=== PATIENT | male | born 2000 | race Hispanic/Latino ===

== ENCOUNTER 2022-06-01 11:09 | Emergency (ER) | payer SELFPAY ==
[~2022-06-01 11:09] MED LIST: Iopamidol 300 61% 100 ML VIAL FS ONE
[2022-06-01 12:30] LABS: #Basophils 0.1 10x3/uL (0.0-0.2); #Eosinphils 0.2 10x3/uL (0.0-0.5); #Monocytes 0.3 10x3/uL (0.0-1.1); #Neutrophils 2.8 10x3/uL (1.5-8.4); %Basophils 1.5 % (0.0-2.0); %Monocytes 5.8 % (0.0-10.0); %Neutrophils 53.5 % (40.0-75.0); Hemoglobin 14.8 g/dL (13.5-17.5); Mean Corpuscular HGB CONC 32.4 g/dL (32.0-36.0); Mean Corpuscular Hemoglobin 28.4 pg (27.0-33.0); Mean Corpuscular Volume 87.7 fl (81.2-95.1); Mean Platelet Volume 9.9 fl (7.4-10.4); Platelet Count 275 10x3/uL (150-450); RBC Distribution Width 13.2 % (11.5-14.5); Red Blood Cell (RBC) Count 5.21 10x6/uL (4.32-5.72); White Blood Cell (WBC) Count 5.3 10x3/uL (3.5-10.5)
[2022-06-01 12:50] LABS: ALT (SGPT) 22 U/L (8-55); AST (SGOT) 26 U/L (5-34); Albumin 4.5 g/dL (3.5-5.0); Alkaline Phosphatase 110 U/L (50-130); Anion Gap 11 mmol/L (10-20); BUN (Urea Nitrogen) 14 mg/dL (8.9-20.6); Bilirubin, Total 1.1 mg/dL (0.2-1.2); Calc. Creatinine Clearance 0 mL/min (70-130); Calcium 9.7 mg/dL (7.8-10.44); Carbon Dioxide 26 mmol/L (22-29); Chloride 104 mmol/L (98-107); Estimated GFR 103; Glucose 89 mg/dL (70-105); Potassium 4.1 mmol/L (3.5-5.1); Protein, Total 7.5 g/dL (6.0-8.3); Sodium 137 mmol/L (136-145)
[2022-06-01] MEDS ORDERED: Meclizine HCl 25 MG TAB ONE (13:08)
== END 2022-06-01 14:26 | disposition home or self-care (01) ==
LOC: CSHERS 11:09
DX: H81.399 Other peripheral vertigo, unspecified ear (principal)
CPT/HCPCS: 70450; 70496; 70498; 80053; 85025; Q9967